=== PATIENT | male | born 1960 | race Caucasian/White ===

== ENCOUNTER 2018-01-23 12:15 | Day surgery (SDC) | payer OTHER ==
[2018-01-23] MEDS ORDERED: FENTAnyl 50 MCG/ML VIAL (16:43)
[2018-01-23] MEDS ORDERED: PROPOFOL 40 ML (16:43)
== END 2018-01-23 17:50 | disposition home or self-care (01) ==
LOC: GIL 12:15
DX: Z12.11 Encounter for screening for malignant neoplasm of colon (principal); K64.8 Other hemorrhoids; K20.9 Esophagitis, unspecified; K25.9 Gastric ulcer, unspecified as acute or chronic, without hemorrhage or perforation; K29.70 Gastritis, unspecified, without bleeding; I12.9 Hypertensive chronic kidney disease with stage 1 through stage 4 chronic kidney disease, or unspecified chronic kidney disease; N18.9 Chronic kidney disease, unspecified; E66.9 Obesity, unspecified; Z68.31 Body mass index [BMI] 31.0-31.9, adult
CPT/HCPCS: 43239; 88305